=== PATIENT | female | born 1990 | race Caucasian/White ===

== ENCOUNTER 2018-03-18 15:46 | Outpatient (CLI) | payer OTHER ==
[2018-03-18 18:54] LABS: MUDS CUTOFF CONCENTRATIONS CUTOFF CONC BELOW:
[2018-03-18 19:19] LABS: AMPHETAMINE SCREEN,URINE NEGATIVE (NEGATIVE); BENZODIAZEPINES SCREEN, URINE NEGATIVE (NEGATIVE); COCAINE SCREEN URINE NEGATIVE (NEGATIVE); METHADONE SCREEN, URINE NEGATIVE (NEGATIVE); METHAMPHETAMINES SCREEN, URINE NEGATIVE (NEGATIVE); OPIATE SCREEN, URINE NEGATIVE (NEGATIVE); OXYCODONE SCREEN, URINE NEGATIVE (NEGATIVE); PROPOXYPHENE SCREEN, URINE NEGATIVE (NEGATIVE); TRICYCLIC ANTIDEPRESSANT,URINE NEGATIVE (NEGATIVE)
== END 2018-03-18 23:59 | disposition home or self-care (01) ==
LOC: LAB.R 15:46
PROVIDERS: ATTEND Registered Nurse
DX: Z33.1 Pregnant state, incidental (principal)
CPT/HCPCS: 80306

== ENCOUNTER 2018-04-24 13:24 | Outpatient (CLI) | payer OTHER ==
--- NOTE | 2018-04-24 15:17 | Ultrasound Report ---
Reason: , ENCOUNTER FOR SCREENING, UNSP Procedure Date: 04/24/2018 Accession Number: [id number] / [id number] Procedure: US - OB Detailed Eval CPT Code: FULL RESULT: EXAM: COMPLETE OBSTETRICAL ULTRASOUND EXAM DATE: 04/24/2018 02:25 PM. CLINICAL HISTORY: anatomic survey. COMPARISON: None. TECHNIQUE: Real-time sonographic evaluation of the fetus performed by the customer experience intern. Multiple admissions representative static images were saved for review. DATING: Established EGA 24 weeks 5 days with FERMÍN 08/09/2018 based on physician stated. EGA 25 weeks 0 days with FERMÍN 08/07/2018 based on the current ultrasound. GENERAL EVALUATION Lange . Cardiac activity: 140 bpm. movement: Visualized. Presentation: Cephalic. Placenta: Anterior position. No evidence for previa. Umbilical cord: 3 vessel cord. Marginal (1.4 cm from the placental margin) placental cord origin. Amniotic fluid: Subjectively normal at 11 cm.. MVP 3.1 cm. BIOMETRY Bi-Parietal Diameter (BPD): 6.3 cm, 25 weeks 3 days. Head Circumference (HC): 23.3 cm, 25 weeks 2 days. Abdominal Circumference (AC): 19.8 cm, 24 weeks 3 days. Femur Length (FL): 4.5 cm, 25 weeks 0 days. Estimated Weight: 735 g, 44th percentile for 24 weeks 5 days. ANATOMY The intracranial structures, profile, face/nose/lips, spine, 4 chamber heart and outflow tracts, stomach, abdominal wall and cord insertion, diaphragm, bladder, and extremities were visualized and demonstrate no abnormality. There is left renal pelvic caliectasis of 6.8 mm AP dimension. Right renal pelvis measures 2.6 mm in AP dimension. MATERNAL STRUCTURES Uterus: Unremarkable. Cervix: Long and closed. Transabdominal length 3.7 cm. Right ovary/adnexa: Unremarkable. Left ovary/adnexa: Unremarkable. Free fluid: None. IMPRESSION: 1. Lange live intrauterine with gestational age 24 weeks 5 days based on physician stated. 2. Estimated weight is within expected limits for assigned dating at the 44th percentile. 3. Marginal cord origin from the placenta, 1.4 cm from the placental margin. 4. Left renal pelvic caliectasis of 6.8 mm. Repeat ultrasound at 32 weeks is recommended to reassess kidneys and placental cord origin. RADIA
== END 2018-04-24 13:25 | disposition home or self-care (01) ==
LOC: DI 13:24
PROVIDERS: ATTEND Registered Nurse
DX: Z36.9 Encounter for antenatal screening, unspecified (principal); Z3A.24 24 weeks gestation of pregnancy; O28.3 Abnormal ultrasonic finding on antenatal screening of mother
CPT/HCPCS: 76811

== ENCOUNTER 2018-06-11 08:16 | Outpatient (CLI) | payer OTHER ==
--- NOTE | 2018-06-11 18:47 | Ultrasound Report ---
Reason: RENAL ANOMALY, UMBILICAL CORD CONDITION Procedure Date: 06/11/2018 Accession Number: [id number] / [id number] Procedure: US - OB F/U or Repeat CPT Code: FULL RESULT: EXAM: FOLLOW-UP OBSTETRICAL ULTRASOUND EXAM DATE: 06/11/2018 06:07 PM. CLINICAL HISTORY: 27-year-old female. RENAL ANOMALY, UMBILICAL CORD CONDITION. COMPARISON: 04/24/2018. TECHNIQUE: Real-time sonographic evaluation of the fetus performed by the toll test worker. Multiple employer relations representative static images were saved for review. DATING: Established EGA 31 weeks 4 days with FERMÍN 08/09/2018 based on established due date. EGA 31 weeks 6 days with FERMÍN 08/07/2018 based on prior ultrasound. EGA 31 weeks 5 days with FERMÍN 08/08/2018 based on the current ultrasound. GENERAL EVALUATION Lange . Cardiac activity: 148 bpm. movement: Visualized. Presentation: Breech. Placenta: Right anterolateral position. Amniotic fluid: Normal. KWESI 13.8 cm. MVP 4.8 cm. BIOMETRY Bi-Parietal Diameter (BPD): 8.0 cm, 32 weeks 1 day Head Circumference (HC): 29.3 cm, 32 weeks 2 days Abdominal Circumference (AC): 28.2 cm, 32 weeks 2 days Femur Length (FL): 5.8 cm, 38 weeks 2 days Estimated Weight: 1811 g, 41st percentile for 31 weeks 4 days. ANATOMY renal pelvis anterior-posterior measurements right 8.8 mm (later 4.3 mm), left 7.1 mm (later 7.3 mm). Kidneys normal in size measuring approximately 3.9 x 2.1 x 2.3 cm on the right and 4.9 x 2.5 x 2.3 cm on the left. Urinary bladder is unremarkable. MATERNAL STRUCTURES Cervix closed and 4.1 cm in length on transabdominal scan. Placental umbilical cord origin at least 2.8 cm from the placental margin. IMPRESSION: 1. Lange live intrauterine with gestational age 31 weeks 4 days based on established due date. 2. Estimated weight is within expected limits for assigned dating. 3. Normal interval growth compared to 04/24/2018. 4. Persistent mild left renal pelviectasis measuring 7.1-7.3 mm, previously 6.8 mm. Right renal pelvis initially was mildly prominent at 8.8 mm but improved to 4.3 mm later in the study. Recommend follow-up ultrasound one week after delivery. 5. Right anterolateral placenta with umbilical cord origin now central, at least 2.8 cm from the placental margin. RADIA
== END 2018-06-11 08:17 | disposition home or self-care (01) ==
LOC: DI 08:16
PROVIDERS: ATTEND Registered Nurse
DX: O35.8XX0 Maternal care for other (suspected) fetal abnormality and damage, not applicable or unspecified (principal); O26.833 Pregnancy related renal disease, third trimester; N28.89 Other specified disorders of kidney and ureter; Z3A.31 31 weeks gestation of pregnancy
CPT/HCPCS: 76816

== ENCOUNTER 2018-06-18 11:05 | Outpatient (CLI) | payer OTHER ==
[2018-06-18 12:36] LABS: HGB - HEMOGLOBIN 11.4 g/dL (12.0-16.0); MEAN CORPUSCULAR HEMOGLOBIN 32.1 pg (27.0-31.0); MEAN CORPUSCULAR HGB CONC 35.7 g/dL (32.0-36.0); MEAN CORPUSCULAR VOLUME 89.9 fL (81.0-99.0); MEAN PLATELET VOLUME 8.3 fL (7.9-10.8); RED BLOOD COUNT 3.56 10^6/uL (4.20-5.40); WHITE BLOOD COUNT 9.3 x10^3/uL (4.8-10.8)
== END 2018-06-18 11:06 | disposition home or self-care (01) ==
LOC: LAB 11:05
PROVIDERS: ATTEND Nurse Practitioner Obstetrics & Gynecology
DX: Z36.89 Encounter for other specified antenatal screening (principal)
CPT/HCPCS: 36415; 82950; 85027; 86850

== ENCOUNTER 2018-06-30 08:13 | Outpatient (CLI) | payer OTHER | END 2018-06-30 08:14 | disposition home or self-care (01) | LOC: LAB 08:13 | PROVIDERS: ATTEND Nurse Practitioner Obstetrics & Gynecology | DX: O99.810 Abnormal glucose complicating pregnancy (principal) | CPT/HCPCS: 36415; 82951; 82952 ==

== ENCOUNTER 2018-07-14 08:00 | Outpatient (CLI) | payer OTHER | END 2018-07-14 23:59 | disposition home or self-care (01) | LOC: LAB.R 08:00 | PROVIDERS: ATTEND Registered Nurse | DX: Z34.90 Encounter for supervision of normal pregnancy, unspecified, unspecified trimester (principal) | CPT/HCPCS: 87491; 87591; 87797 ==

== ENCOUNTER 2018-07-14 09:51 | Outpatient (CLI) | payer OTHER ==
[2018-07-15 13:13] LABS: HEPATITIS C ANTIBODY NON-REACTIVE (NON-REACTIVE)
[2018-07-15 14:56] LABS: HIV AG/AB 4TH GEN NON-REACTIVE (NON-REACTIVE)
== END 2018-07-14 09:52 | disposition home or self-care (01) ==
LOC: LAB 09:51
PROVIDERS: ATTEND Registered Nurse
DX: Z34.90 Encounter for supervision of normal pregnancy, unspecified, unspecified trimester (principal)
CPT/HCPCS: 36415; 81599; 86592; 86803; 87389; 87491; 87591; 87797

== ENCOUNTER 2018-07-29 08:00 | Outpatient (CLI) | payer OTHER ==
[~2018-07-29 08:00] MED LIST: SODIUM CHLORIDE FLUSH 0.9% 10 ML SYRINGE IVP PRN
[2018-07-29] MEDS ORDERED: RHO(D) IMMUNE GLOBULIN 300 MCG SYRINGE IM SCH (10:16)
--- NOTE | 2018-07-29 10:16 | PROCEDURE REPORT ---
- HPI Diagnosis/Indication for NST: Other (Breech presentation) Vital Signs Temperature 36.7 C 07/29/18 08:05 Heart Rate 81 07/29/18 08:05 Respiratory Rate 18 07/29/18 08:05 Blood Pressure 126/75 07/29/18 08:05 O2 Saturation 100 07/29/18 08:05 Temperature 36.7 C 07/29/18 08:05 Heart Rate 81 07/29/18 08:05 Respiratory Rate 18 07/29/18 08:05 Blood Pressure 126/75 07/29/18 08:05 O2 Saturation 100 07/29/18 08:05 - NST Procedure Pt presents with breech presentation. pt seen in the clinic yesterday and noted to be breech. Here for external version. Risks and benefits explained bleeding distess reviewed. Mother 0-. Version unsuccessful. will monitor for reactivity. Rhogam ordered. see dictation
[2018-07-29 10:46] VITALS: BP 115/78
--- NOTE | 2018-07-29 12:37 | PREOP HISTORY & PHYSICAL ---
DATE OF SERVICE: 07/29/2018 Physician: Timmy Corbett MD HISTORY OF PRESENT ILLNESS: Patient is a 28-year-old G1, P0 female whose EDC is 09 August. She is currently 38.3 weeks EGA. She presents with a breech presentation. PRESENTING HISTORY: Patient received her OB care starting at 19 weeks EGA. She had regular visits. Her labs show her to be O negative. She received RhoGAM. She also was rubella immune, GBS negative. She was seen in the clinic yesterday, at which time she had ultrasonic diagnosis of breech presentation. For this reason, she presents for an external version. The patient states that she had noted a lot of motion last night and felt the baby move. On examination, ultrasound shows the head to be in the left upper quadrant. The back is down with what appears to be corey breech presentation. Placenta is anterior on the right-hand side, and there are adequate pockets of amniotic fluid. Patient received orange juice orally because she had not had anything by mouth to achieve a reactive NST. External version was attempted with ultrasonic guidance. The back was down on the patient's left-hand side. The head was in the left upper quadrant. The infant's pelvis was engaged in the mother's pelvis, and the legs were on the right-hand side with what appeared to be a pike presentation. Multiple attempts were tried to dislodge the 's pelvis out of the mother's pelvis but were unsuccessful. The head could be brought to almost 90 degrees but not quite but always returned to the more upper orientation. The head was unsuccessful in being verted as it was tried both with a back flip as well as front flip neither of which were successful. Patient tolerated the procedure well. The heart rate was monitored throughout the entire procedure and noted to be in a normal range. Following attempts were roughly 15 minutes, it was decided to cease further efforts. IMPRESSION 1. 28-year-old G1, P0, 38.3 weeks estimated gestational age. 2. Breech presentation. 3. O negative. PLAN: We will schedule patient for a primary next Friday. Will administer RhoGAM as she is Rh negative, will obtain a reactive strip prior to going home. Patient is cautioned that, should she go into labor, she should present regardless the time of day for evaluation and probable . Will determine 's presentation immediately prior to performing a . TD: 07/29/2018 10:35 [place]
== END 2018-07-29 10:58 | disposition home or self-care (01) ==
LOC: WFO 08:00 → FBP 08:04 → WFO 10:58
PROVIDERS: ATTEND Obstetrics & Gynecology
DX: O32.1XX0 Maternal care for breech presentation, not applicable or unspecified (principal); O26.893 Other specified pregnancy related conditions, third trimester; Z67.41 Type O blood, Rh negative; Z3A.38 38 weeks gestation of pregnancy
CPT/HCPCS: 96372

== ENCOUNTER 2018-08-04 12:42 | Outpatient (CLI) | payer OTHER ==
[2018-08-04 12:57] LABS: BASOPHILS % (AUTO) 0.4 %; EOSINOPHILS % (AUTO) 0.3 %; HGB - HEMOGLOBIN 12.5 g/dL (12.0-16.0); LYMPHOCYTES # (AUTO) 1.7 10^3/uL (1.5-3.5); LYMPHOCYTES % (AUTO) 16.5 %; MEAN CORPUSCULAR HEMOGLOBIN 31.3 pg (27.0-31.0); MEAN CORPUSCULAR HGB CONC 35.7 g/dL (32.0-36.0); MEAN CORPUSCULAR VOLUME 87.9 fL (81.0-99.0); MEAN PLATELET VOLUME 8.8 fL (7.9-10.8); MONOCYTES # (AUTO) 0.7 10^3/uL (0.0-1.0); MONOCYTES % (AUTO) 6.5 %; NEUTROPHILS # (AUTO) 7.8 10^3/uL (1.5-6.6); NEUTROPHILS % (AUTO) 76.3 %; PLT - PLATELET COUNT 190 10^3/uL (130-450); RED BLOOD COUNT 3.99 10^6/uL (4.20-5.40); RED CELL DISTRIBUTION WIDTH 12.5 % (12.0-15.0); WHITE BLOOD COUNT 10.2 x10^3/uL (4.8-10.8)
[2018-08-04 13:05] LABS: CALCIUM 9.3 mg/dL (8.5-10.3); CREATININE 0.6 mg/dL (0.4-1.0)
== END 2018-08-04 12:43 | disposition home or self-care (01) ==
LOC: LAB 12:42
PROVIDERS: ATTEND Obstetrics & Gynecology
DX: Z01.812 Encounter for preprocedural laboratory examination (principal); O32.1XX0 Maternal care for breech presentation, not applicable or unspecified
CPT/HCPCS: 36415; 80048; 85025; 86850; 86870; 86900; 86901

== ENCOUNTER 2018-08-05 05:02 | Inpatient (IN) | payer OTHER ==
[2018-08-05] MEDS ORDERED: SODIUM CHLORIDE FLUSH 0.9% 10 ML SYRINGE ONE (05:23)
[2018-08-05] MEDS ORDERED: LACTATED RINGERS 1,000 ML IV ONE ×2 (05:59→09:03)
[2018-08-05] MEDS ORDERED: LACTATED RINGERS 1,000 ML IV SCH (06:00)
--- NOTE | 2018-08-05 07:04 | ANESTHESIA ---
Pre-Anesthesia VS, & Labs - Diagnosis breech presentation - Procedure primary c/s Vital Signs: Temp Pulse Resp BP Pulse Ox 37 C 92 16 125/81 H 100 08/05/18 05:26 08/05/18 05:26 08/05/18 05:26 08/05/18 05:26 08/05/18 05:26 Height 5 ft 5 in Weight (kg) 80.739 kg - NPO >8 hours - Is Patient ?: Yes - Lab Results Lab results reviewed: Yes Other Lab Results: Hgb 12 hct 35 plat 190 Home Medications and Allergies Active Medications Lactated Ringer's (Lr) 1,000 mls @ 0 mls/hr IV .Q0M [facility] Last Admin: 08/05/18 06:10 Dose: 33 mls/hr flonase, pnv, stool softner Allergies/Adverse Reactions: Allergies Allergy/AdvReac Type Severity Reaction Status Date / Time Penicillins Allergy Intermediate Rash Verified 07/29/18 08:09 Anes History & Medical History - Anesthetic History Anesthesia Complications: reports: No previous complications - Medical History Cardiovascular: reports: None Pulmonary: reports: None Gastrointestinal: reports: GERD Urinary: reports: None Neuro: reports: None Musculoskeletal: reports: None Endocrine/Autoimmune: reports: None Blood Disorders: reports: None Skin: reports: None Smoking Status: Never smoker Psychosocial: reports: Depression, Anxiety - Surgical History Gynecologic: Breast reduction - Obstetrical History : 1 Parity: 0 Events: positive: None Complications: positive: None Exam General: Alert, Oriented x3, Cooperative, No acute distress Mouth Openin Fingerbreadth Neck Mobility: Normal Mallampati classification: I Thyromental Distance: greater than 6 cm Respiratory: Lungs clear, Normal breath sounds, No respiratory distress, No accessory muscle use Cardiovascular: Regular rate, Normal S1, Normal S2, No murmurs Mental/Cognitive Status: Alert/Oriented X3, Normal for patient Plan Anesthesia Type: Spinal Consent for Procedure(s) Verified and Reviewed: Yes Code Status: Attempt Resuscitation ASA classification: 2-Mild systemic disease Is this case an emergency?: No
[2018-08-05] MEDS ORDERED: OXYTOCIN/SODIUM CHLORIDE 1,000 ML IV ONE (07:21)
[2018-08-05] MEDS ORDERED: CLINDAMYCIN 900 MG/50 ML 50 ML IV SCH (08:00)
[2018-08-05] MEDS ORDERED: KETOROLAC 30 MG/ML VIAL IVP ONE (08:48)
[2018-08-05] MEDS ORDERED: PHENYLEPHRINE 50 MG/5 ML VIAL IV ONE (08:48)
[2018-08-05] MEDS ORDERED: MIDAZOLAM 2 MG/2 ML VIAL IVP ONE (08:48)
[2018-08-05] MEDS ORDERED: MORPHINE PF 5 MG/10 ML AMP EP ONE (08:48)
[2018-08-05] MEDS ORDERED: ONDANSETRON 4 MG/2 ML VIAL IVP ONE (08:48)
[2018-08-05] MEDS ORDERED: fentaNYL 100 MCG/2 ML VIAL IVP ONE (08:48)
[2018-08-05] MEDS ORDERED: OXYTOCIN/SODIUM CHLORIDE 500 ML IV PRN (09:04)
[2018-08-05] MEDS ORDERED: ONDANSETRON 4 MG/2 ML VIAL IVP PRN (09:04)
[2018-08-05] MEDS ORDERED: diphenhydrAMINE 25 MG CAPSULE PO PRN (09:04)
--- NOTE | 2018-08-05 09:16 | OPERATIVE REPORT ---
Operative Report - General Admit Date: 08/05/18 Procedure Date: 08/05/18 Planned Procedure: PLTC/S Pre-Op Diagnosis: Term Cyesis, Breech failed external version Procedure Performed: PLTC/S Post Op Diagnosis: Same - Procedure Note Primary Surgeon: Timmy Corbett MD Secondary Surgeon: Jade Sahh MD Anesthesia Provider: Jorge L Carlos CRNA Anesthesia Technique: Spinal Pathology: NONE IV Fluids (mL): 700 Estimated Blood Loss (mL): 500 Urine Output (mL): 50 Findings: Live Male Apgars 9/9 Complications: None
--- NOTE | 2018-08-05 11:03 | OPERATIVE REPORT ---
DATE OF SERVICE: 08/05/2018 Physician: Timmy Corbett MD PREOPERATIVE DIAGNOSES 1. 39 weeks. 2. Breech presentation. 3. Failed external version. POSTOPERATIVE DIAGNOSES 1. 39 weeks. 2. Breech presentation. 3. Failed external version. PROCEDURE PERFORMED: Primary low transverse section. SURGEON: Timmy Corbett MD HELP AID: Jade Shah MD ANESTHESIA PROVIDER: Anastacia Carlos CRNA ANESTHETIC: Spinal. ESTIMATED BLOOD LOSS: 500 mL IV FLUIDS: 700 mL URINE OUTPUT: 50 mL FINDINGS: Live male , corey breech presentation. Apgars 9 and 9, weight pending. Normal uter us, tubes and ovaries. No evidence of any uterine septum. DESCRIPTION OF PROCEDURE: Following adequate spinal anesthesia, patient was placed in the supine pos ition with a roll under her right hip. Cisse catheter was placed under sterile conditions. SCDs wer e also placed. She was then prepped and draped in the usual fashion. Timeout was then performed in which the patient was identified as well as concerns addressed. She had an allergy to penicillin jana s she then received clindamycin 900 mg. At this point, a Pfannenstiel incision was carried down thro ugh the subcutaneous tissue to the fascia. The fascia was incised transversely and then using both b lorna and sharp dissection, it was freed from the rectus abdominis along the midline. The midline was then entered utilizing Metzenbaums. The peritoneum was tented and then entered using Metzenbaums. The incision was carried superiorly and inferiorly. Care was taken to avoid any injury to bowel or b ladder. At this point, the peritoneum over the uterus was tented, incised and carried laterally with the Metzenbaums. A low transverse uterine incision was accomplished using a #10 blade and bandage s cissors, as well as finger spread technique. Care was taken to avoid any injury to the uterine vesse ls. The breech of the was encountered. The amniotic fluid was ruptured and noted to be clear . The breech of the infant was then delivered with the legs flexed and then delivered. The shoulder s were then swept bilaterally and then the head delivered through the incision. The cord was waited to be clamped for 40 seconds, at which time was clamped and divided, and the was handed to the nursery team that was standing by. Cord blood samples were obtained, following which, the placenta was both spontaneous and manually delivered. The uterus was exteriorized and wrapped in a moist lap and cleansed in the internal portion with a dry lap. The lower edges of the incision were grasped wi th ring forceps. The cervix was dilated with ring forceps and then the incision was closed utilizing 0 Vicryl in a running locking suture with an imbricating layer of 0 Vicryl. Good hemostasis was obs erved. The uterus was then tipped forward cul-de-sac was suctioned clear of any clot and the estimat ed blood loss was accomplished at that time was noted to be roughly 500 mL. At this point, the uteru s was delivered back and the cul-de-sac was irrigated. The uterus was delivered back in the abdomina l cavity, and then the incision was inspected for bleeding, none was noted. The peritoneum was then closed utilizing 2-0 Vicryl. The rectus was inspected for bleeding, none was noted. It was reapprox imated with an interrupted [id number] 2-0 Vicryl. The fascia was closed utilizing looped PDS in a running suture. Subcutaneous tissue was closed utilizing 2-0 Vicryl and then the incision itself was closed using 4-0 Monocryl subcuticular. A wound VAC was then placed without difficulty. The tree andrzej was expressed for clots. No further bleeding was noted. At this point, the procedure was termin ated. Patient was taken to recovery in stable condition. Sponge and needle counts were correct. TD: 08/05/2018 09:26
[2018-08-05] MEDS: LACTATED RINGERS 1,000 ML IV SCH ×2 (12:43→16:20)
[2018-08-05] MEDS: ACETAMINOPHEN 500 MG TABLET PO SCH ×2 (16:18→18:34)
[2018-08-05] MEDS: SIMETHICONE CHEW 80 MG TABLET PO SCH ×2 (16:18→18:35)
[2018-08-05] MEDS: KETOROLAC 30 MG/ML VIAL IVP SCH ×2 (16:19→22:14)
[2018-08-05] MEDS: SODIUM CHLORIDE FLUSH 0.9% 10 ML SYRINGE IVP SCH ×2 (18:34→22:15)
[2018-08-05] MEDS: DOCUSATE SODIUM 100 MG CAPSULE PO SCH (21:06)
[2018-08-05] MEDS: SODIUM CHLORIDE FLUSH 0.9% 10 ML SYRINGE IVP PRN (22:16)
[2018-08-06] MEDS: ACETAMINOPHEN 500 MG TABLET PO SCH ×3 (00:03→17:17)
[2018-08-06] MEDS: SIMETHICONE CHEW 80 MG TABLET PO SCH ×3 (00:04→20:53)
[2018-08-06] MEDS: KETOROLAC 30 MG/ML VIAL IVP SCH ×2 (04:20→08:00)
[2018-08-06] MEDS: SODIUM CHLORIDE FLUSH 0.9% 10 ML SYRINGE IVP PRN (04:20)
[2018-08-06] MEDS: SODIUM CHLORIDE FLUSH 0.9% 10 ML SYRINGE IVP SCH (04:20)
[2018-08-06 05:47] LABS: BASOPHILS % (AUTO) 0.4 %; EOSINOPHILS # (AUTO) 0.1 10^3/uL (0.0-0.7); EOSINOPHILS % (AUTO) 0.9 %; HGB - HEMOGLOBIN 10.1 g/dL (12.0-16.0); LYMPHOCYTES # (AUTO) 1.6 10^3/uL (1.5-3.5); LYMPHOCYTES % (AUTO) 18.3 %; MEAN CORPUSCULAR HEMOGLOBIN 31.2 pg (27.0-31.0); MEAN CORPUSCULAR HGB CONC 35.1 g/dL (32.0-36.0); MEAN CORPUSCULAR VOLUME 88.9 fL (81.0-99.0); MEAN PLATELET VOLUME 9.3 fL (7.9-10.8); MONOCYTES # (AUTO) 0.9 10^3/uL (0.0-1.0); MONOCYTES % (AUTO) 10.4 %; PLT - PLATELET COUNT 134 10^3/uL (130-450); RED BLOOD COUNT 3.24 10^6/uL (4.20-5.40); RED CELL DISTRIBUTION WIDTH 12.8 % (12.0-15.0); WHITE BLOOD COUNT 8.5 x10^3/uL (4.8-10.8)
--- NOTE | 2018-08-06 08:57 | PROVIDER PROGRESS NOTE ---
Subjective - General Admit Date: 08/05/18 Procedure Date: 08/05/18 Post Op Days: 1 Procedure Performed: PLTC/S - Review of Systems Wound/Incisions: positive: Dressing dry and intact General: positive: No symptoms Cardiovascular: positive: No symptoms Gastrointestinal: positive: No symptoms, Flatus. negative: Nausea, Vomiting Psychiatric: positive: No symptoms Objective - Patient Data Reviewed Vital Signs: Yes Vital Signs: Vital Signs x48h Temp Pulse Resp BP Pulse Ox 08/06/18 06:30 16 08/06/18 05:30 16 08/06/18 04:30 36.7 C 69 18 112/67 99 08/06/18 03:30 16 08/06/18 02:30 14 08/06/18 01:30 18 Weight: Weight 08/04/18 08/05/18 08/06/18 23:59 23:59 23:59 Weight (kg) 80.739 kg Intake & Output: Intake and Output Totals x24h 08/04/18 08/05/18 08/06/18 23:59 23:59 23:59 Intake Total 361.667 Output Total 900 1150 Balance -538.333 -1150 - Lab Results Lab Results: 08/06/18 05:19 Other Lab Results: Lab Results x24hrs 08/06/18 08/06/18 Range/Units 05:19 05:19 WBC 8.5 (4.8-10.8) x10^3/uL RBC 3.24 L (4.20-5.40) 10^6/uL Hgb 10.1 L (12.0-16.0) g/dL Hct 28.8 L (37.0-47.0) % MCV 88.9 (81.0-99.0) fL MCH 31.2 H (27.0-31.0) pg MCHC 35.1 (32.0-36.0) g/dL RDW 12.8 (12.0-15.0) % Plt Count 134 (130-450) 10^3/uL MPV 9.3 (7.9-10.8) fL Neut # (Auto) 6.0 (1.5-6.6) 10^3/uL Lymph # (Auto) 1.6 (1.5-3.5) 10^3/uL Robertson # (Auto) 0.9 (0.0-1.0) 10^3/uL Eos # (Auto) 0.1 (0.0-0.7) 10^3/uL Baso # (Auto) 0.0 (0.0-0.1) 10^3/uL Absolute Nucleated RBC 0.00 x10^3/uL Nucleated RBC % 0.0 /100WBC Blood Type O NEGATIVE Maternal Bleed NEGATIVE (NEGATIVE) - Current Medications Current Medications: Current Medications Generic Name Dose Route Start Last Admin Trade Name Freq PRN Reason Stop Dose Admin Acetaminophen 1,000 mg 08/05/18 10:00 08/06/18 00:03 Tylenol PO 1,000 mg Q8H SLIME Administration Docusate Sodium 100 mg 08/05/18 21:00 08/05/18 21:06 Colace 100mg Capsule PO 100 mg BID SLIME Administration Lactated Ringer's 1,000 mls @ 0 mls/hr 08/05/18 06:00 08/05/18 06:10 Lr IV 33 mls/hr .Q0M SLIME Administration TKO Lactated Ringer's 1,000 mls @ 100 mls/hr 08/05/18 10:00 08/05/18 16:20 Lr IV 100 mls/hr .Q10H SLIME Administration Simethicone 80 mg 08/05/18 14:00 08/06/18 00:04 Mylicon PO 80 mg TID SLIME Administration Sodium Chloride 10 ml 08/05/18 09:04 08/06/18 04:20 Normal Saline Flush 0.9% IVP 10 ml PRN PRN Administration NEEDED PER PROVIDER ORDERS Sodium Chloride 10 ml 08/05/18 17:00 08/06/18 04:20 Normal Saline Flush 0.9% IVP 10 ml 0100,0900,1700 SLIME Administration - Physical Exam Wound/Incisions: positive: Dressing dry and intact (Wound Vac) General Appearance: positive: No acute distress (Pain 2/10), Alert Respiratory: positive: Chest non-tender, No respiratory distress, Breath sounds nml Cardiovascular: positive: Regular rate & rhythm, No murmur, No gallop Abdomen: positive: Non-tender, Nml bowel sounds, No distention, Mass (U-2) Back: negative: CVA tenderness (R), CVA tenderness (L) Skin: positive: Color nml, No rash Extremities: negative: Calf tenderness, Afia's sign/cords Neurologic/Psychiatric: positive: Oriented x3 Impression/Plan - Problem List Problem List: POD#1 progressing well O- pt recieved Rhogam last week full dose.
[2018-08-06] MEDS: DOCUSATE SODIUM 100 MG CAPSULE PO SCH ×2 (09:14→20:54)
[2018-08-06] MEDS: IBUPROFEN 600 MG TABLET PO SCH ×2 (14:55→20:54)
[2018-08-06] MEDS: oxyCODONE 5 MG TABLET PO PRN (20:55)
[2018-08-07] MEDS: ACETAMINOPHEN 500 MG TABLET PO SCH ×3 (01:40→18:19)
[2018-08-07] MEDS: oxyCODONE 5 MG TABLET PO PRN ×3 (01:54→15:58)
[2018-08-07] MEDS: IBUPROFEN 600 MG TABLET PO SCH ×3 (05:00→18:19)
[2018-08-07 08:24] VITALS: BP 117/67
[2018-08-07] MEDS: SIMETHICONE CHEW 80 MG TABLET PO SCH (08:35)
[2018-08-07] MEDS: DOCUSATE SODIUM 100 MG CAPSULE PO SCH (08:36)
--- NOTE | 2018-08-07 09:44 | PROVIDER PROGRESS NOTE ---
Subjective - General Admit Date: 08/05/18 Procedure Date: 08/05/18 Post Op Days: 2 Procedure Performed: PLTC/S - Review of Systems Wound/Incisions: positive: Dressing dry and intact (Wound Vac functioning well) General: positive: No symptoms (Good pain control. 2-06/24) Cardiovascular: positive: No symptoms Gastrointestinal: positive: No symptoms, Flatus. negative: Nausea, Vomiting Psychiatric: positive: No symptoms Objective - Patient Data Reviewed Vital Signs: Yes Vital Signs: Vital Signs x48h Temp Pulse Resp BP BP Pulse Ox 08/07/18 08:23 36.9 C 70 17 117/67 98 08/07/18 04:45 36.8 C 78 18 111/47 L 98 Weight: Weight 08/05/18 08/06/18 08/07/18 23:59 23:59 23:59 Weight (kg) 80.739 kg Intake & Output: Intake and Output Totals x24h 08/05/18 08/06/18 08/07/18 23:59 23:59 23:59 Intake Total 361.667 300 Output Total 900 1700 Balance -538.333 -1400 - Lab Results Lab Results: 08/06/18 05:19 Other Lab Results: Lab Results x24hrs 08/06/18 Range/Units 16:26 Antibody Screen POSITIVE Antibody Identification See Comments - Current Medications Current Medications: Current Medications Generic Name Dose Route Start Last Admin Trade Name Freq PRN Reason Stop Dose Admin Acetaminophen 1,000 mg 08/05/18 10:00 08/07/18 01:40 Tylenol PO 1,000 mg Q8H SLIME Administration Docusate Sodium 100 mg 08/05/18 21:00 08/07/18 08:36 Colace 100mg Capsule PO 100 mg BID SLIME Administration Lactated Ringer's 1,000 mls @ 100 mls/hr 08/05/18 10:00 08/05/18 16:20 Lr IV 100 mls/hr .Q10H SLIME Administration Ibuprofen 600 mg 08/06/18 15:00 08/07/18 05:00 Motrin PO 600 mg Q6H SLIME Administration Oxycodone HCl 5 mg 08/05/18 09:04 08/07/18 08:36 Roxicodone PO 5 mg Q4HR PRN Administration PAIN Simethicone 80 mg 08/05/18 14:00 08/07/18 08:35 Mylicon PO 80 mg TID SLIME Administration Sodium Chloride 10 ml 08/05/18 09:04 08/06/18 04:20 Normal Saline Flush 0.9% IVP 10 ml PRN PRN Administration NEEDED PER PROVIDER ORDERS Sodium Chloride 10 ml 08/05/18 17:00 08/06/18 04:20 Normal Saline Flush 0.9% IVP 10 ml 0100,0900,1700 SLIME Administration - Physical Exam Wound/Incisions: positive: Dressing dry and intact General Appearance: positive: No acute distress, Alert Respiratory: positive: Chest non-tender, No respiratory distress, Breath sounds nml Cardiovascular: positive: Regular rate & rhythm, No murmur, No gallop Abdomen: positive: Non-tender, No organomegaly, Nml bowel sounds, No distention Back: negative: CVA tenderness (R), CVA tenderness (L) Extremities: negative: Calf tenderness, Afia's sign/cords Neurologic/Psychiatric: positive: Oriented x3 Impression/Plan - Problem List Problem List: POD #2 progressing well Send Home. Discharge meds Oxycodone 5 mg #15 Motrin 600 mg Colace 100 mg RTC 1 week for wound vac.
--- NOTE | 2018-08-07 09:46 | Discharge Plan ---
Discharge Plan Disposition: 01 Home, Self Care Condition: Good Diet: Regular Activity Restrictions: Pelvic rest 6 weeks Shower Restrictions: No Driving Restrictions: Yes (not while taling narcotics) No Smoking: If you smoke, Please STOP! Call for help. Follow-up with: Timmy Corbett MD [Provider Admit Priv/Credential] -
[2018-08-07] MEDS ORDERED: RHO(D) IMMUNE GLOBULIN 300 MCG SYRINGE IM ONE (10:15)
--- NOTE | 2018-08-07 10:35 | DISCHARGE SUMMARY ---
Physician: Timmy Corbett MD DATE OF ADMISSION: 08/05/2018 DATE OF DISCHARGE: 08/07/2018 ADMITTING DIAGNOSES 1. A 39 week cyesis. 2. Breech presentation. 3. Failed version. 4. Rh negative. DISCHARGE DIAGNOSES 1. A 39 week cyesis. 2. Breech presentation. 3. Failed version. 4. Rh negative. PROCEDURE: Primary low transverse section. PRESENTING HISTORY: Patient is a 28-year-old primigravida who presented to the clinic at 38 weeks, at which time the diagnosis of breech presentation was made. She had an attempted external version, but the infant's breech was well engaged into the pelvis and was unable to be removed and version was unsuccessful. Pt received Rhogam following her attempted external version. For this reason, she presented for a on 08/05/2018. Her course was significant in that she was Rh negative. She received RhoGAM. LABORATORIES: CBC post-delivery was 10.1. Her white count was 8.5. Her platelets were 134. Blood bank, she was noted to be O negative. Antibody screen was positive. This was compatible with the fact that she received RhoGAM at time of her attempted external version. She had an antibody screen performed here after delivery, which was positive for anti-D which was assumed to be from the RhoGAM which she was administered. Her maternal bleed screen was negative. HOSPITAL COURSE: Patient was admitted and taken to the operating room, at which time a primary low transverse section was performed without incident. Blood loss was minimal at roughly 500 mL. The was noted to be in the corey breech presentation. Apgars were 9 and 9. Her course has been unremarkable. Her diet has been advanced. She is taking oral pain medication. She received RhoGAM at time of external version. LABS: Her labs show her to be O negative. Her maternal bleed screen was negative. Her antibody screen was positive for anti-D which was felt to probably be a passive. However, the usual routine is to give the person 2 amps of RhoGAM following delivery for an Rh positive , so she is going to receive her second unit prior to discharge. DISCHARGE MEDICATIONS 1. Motrin 600. 2. Oxycodone 5 mg, #15. 3. Colace. We have discussed the issues of , mastitis, contraception and wound infection. She is instructed to followup in the clinic in 1 week for removal of her wound VAC. TD: 08/07/2018 09:56 ERICH
== END 2018-08-07 18:25 | disposition home or self-care (01) | DRG 788 ==
LOC: FBP 05:02
PROVIDERS: ADMIT Obstetrics & Gynecology; ATTEND Obstetrics & Gynecology
PROC: 10D00Z1 Extraction of Products of Conception, Low, Open Approach (ICD-10-PCS; principal; 2018-08-05 07:30)
DX: O32.1XX0 Maternal care for breech presentation, not applicable or unspecified (principal); O75.89 Other specified complications of labor and delivery; Z37.0 Single live birth; Z67.41 Type O blood, Rh negative; Z3A.39 39 weeks gestation of pregnancy
CPT/HCPCS: 36415; 83033; 85025; 86850; 86870; 86900; 86901; A9270; J7120

== ENCOUNTER 2019-06-23 08:46 | Outpatient (CLI) | payer OTHER ==
--- NOTE | 2019-06-24 01:36 | Ultrasound Report ---
Reason: POSITIVE TEST Procedure Date: 06/23/2019 Accession Number: [id number] / [id number] Procedure: US - OB First Trimester CPT Code: Final Report FULL RESULT: EXAM: FIRST TRIMESTER OBSTETRIC ULTRASOUND (Less than 11 weeks) EXAM DATE: 06/23/2019 10:01 AM. CLINICAL HISTORY: POSITIVE TEST. LMP: 04/27/2019. COMPARISONS: None. TECHNIQUE: Transabdominal and transvaginal ultrasound examination with static image documentation. CLINICAL DATES: EGA 8 weeks 1 day with FERMÍN 02/01/2020 based on LMP. ASSESSMENT: Gestational Sac: Single intrauterine. Mean gestational sac diameter: 36.6 mm = 9 weeks 0 days. Embryo: CRL (crown-rump length) 18.3 mm = 8 weeks 2 days. Cardiac activity: 172 beats per minute. Yolk sac: 5.2 mm. Amniotic fluid: Not accurately assessed at this gestational age. Early placenta: Not visible at this gestational age. Other: 1.2 x 1.1 x 0.6 cm perigestational hemorrhage.. MATERNAL STRUCTURES: Uterus: Retroverted. Unremarkable. Cervix: Closed. Right Ovary/Adnexa: The ovary measures 2.0 x 1.4 x 1.3 cm, volume 2 cc. Unremarkable. Left Ovary/Adnexa: The ovary measures 3.2 x 2.4 x 2.2 cm, volume 9 cc. Unremarkable. Free Fluid: None. Other: 2.7 x 2.6 x 1.9 cm anterior intramural leiomyoma.. IMPRESSION: 1. Single viable intrauterine at EGA 8 weeks 2 days with FERMÍN 01/31/2020 based on crown-rump length, which is concordant with clinical dates. 2. Assigned dating is FERMÍN 02/01/2020 based on LMP. 3. 1.2 cm perigestational hemorrhage. [facility]
== END 2019-06-23 08:47 | disposition home or self-care (01) ==
LOC: DI 08:46
PROVIDERS: ATTEND Nurse Practitioner Obstetrics & Gynecology
DX: O46.91 Antepartum hemorrhage, unspecified, first trimester (principal); Z3A.08 8 weeks gestation of pregnancy
CPT/HCPCS: 76801

== ENCOUNTER 2019-07-27 08:00 | Outpatient (CLI) | payer OTHER ==
[2019-07-27 15:24] LABS: MUDS CUTOFF CONCENTRATIONS CUTOFF CONC BELOW:
[2019-07-27 15:38] LABS: BILIRUBIN,URINE NEGATIVE (NEGATIVE); GLUCOSE, URINE (UA) NEGATIVE (NEGATIVE); KETONES,URINE (UA) NEGATIVE (NEGATIVE); LEUKOCYTE ESTERASE, URINE NEGATIVE (NEGATIVE); NITRITE,URINE NEGATIVE (NEGATIVE); OCCULT BLOOD,URINE NEGATIVE (NEGATIVE); PROTEIN,URINE NEGATIVE (NEGATIVE); UROBILINOGEN,URINE 0.2 (NORMAL) E.U./dL (NORMAL)
[2019-07-27 15:39] LABS: CLARITY,URINE CLEAR (CLEAR)
[2019-07-27 15:50] LABS: AMPHETAMINE SCREEN,URINE NEGATIVE (NEGATIVE); BENZODIAZEPINES SCREEN, URINE NEGATIVE (NEGATIVE); COCAINE SCREEN URINE NEGATIVE (NEGATIVE); METHADONE SCREEN, URINE NEGATIVE (NEGATIVE); METHAMPHETAMINES SCREEN, URINE NEGATIVE (NEGATIVE); OPIATE SCREEN, URINE NEGATIVE (NEGATIVE); OXYCODONE SCREEN, URINE NEGATIVE (NEGATIVE); PROPOXYPHENE SCREEN, URINE NEGATIVE (NEGATIVE); TRICYCLIC ANTIDEPRESSANT,URINE NEGATIVE (NEGATIVE)
[2019-07-27 21:05] LABS: CANDIDA GROUP DNA NEGATIVE (NEGATIVE); CANDIDA KRUSEI DNA NEGATIVE (NEGATIVE); TRICHOMONAS VAGINALIS DNA NEGATIVE (NEGATIVE)
[2019-07-27 23:17] LABS: TRICHOMONAS VAGINALIS DNA NEGATIVE (NEGATIVE)
== END 2019-07-27 08:01 | disposition home or self-care (01) ==
LOC: LAB.R 08:00
PROVIDERS: ATTEND Obstetrics & Gynecology
DX: Z34.90 Encounter for supervision of normal pregnancy, unspecified, unspecified trimester (principal); Z11.3 Encounter for screening for infections with a predominantly sexual mode of transmission
CPT/HCPCS: 80306; 81001; 81003; 87086; 87491; 87591; 87661; 87801